=== PATIENT | female | born 1980 | race American Indian/Alaskan Native ===

== ENCOUNTER 2017-04-09 00:18 | Emergency (ER) | payer BC ==
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
[2017-04-09 08:03] VITALS: BP 117/79
--- NOTE | 2017-04-09 09:49 | XRay Report ---
Left knee 2 views: History: Left knee injury. Findings: No bony or articular abnormality. No fracture dislocation or joint effusion. Impression: Essentially negative left knee.
== END 2017-04-09 08:00 | disposition home or self-care (01) ==
LOC: ED 00:18
DX: S80.02XA Contusion of left knee, initial encounter (principal); S39.012A Strain of muscle, fascia and tendon of lower back, initial encounter; V89.2XXA Person injured in unspecified motor-vehicle accident, traffic, initial encounter; Y93.89 Activity, other specified; Y92.89 Other specified places as the place of occurrence of the external cause; Y99.8 Other external cause status
CPT/HCPCS: 99283